=== PATIENT | female | born 1955 | race Caucasian/White ===

== ENCOUNTER → 2023-12-16 10:25 | Outpatient (CLI) | payer MEDICARE, SELFPAY ==
[2023-12-16 11:31] LABS: Hematocrit 42.9 % (36-46); Hemoglobin 14.6 g/dL (12.0-16.0); Mean Corpuscular HGB Conc 34.1 % (30-36); Mean Corpuscular Volume 96.8 fL (80-100); Platelet Count 178 X10^3/uL (150-400); Red Blood Cell Count 4.43 X10^6/uL (4.0-5.2); Red Cell Distribution Width 13.5 % (11.6-14.8); White Blood Cell Count 3.3 X10^3/uL (4.5-11.0)
[2023-12-16 11:55] LABS: Erythrocyte Sedimentation Rate 1 MM/HR (0-20)
[2023-12-16 11:58] LABS: Alanine Aminotransferase 18 IU/L (<35); Albumin 4.3 g/dL (3.5-5.0); Albumin Globulin Ratio 1.4 (1.0-2.8); Alkaline Phosphatase 83 U/L (38-126); Aspartate Aminotransferase 31 IU/L (14-36); BUN Creatinine Ratio 25.4 (6-22); Bilirubin Total 0.8 mg/dL (0.2-1.3); Blood Urea Nitrogen 16 mg/dL (7-17); C-Reactive Protein Quant < 0.5 mg/dL (<1.0); Calcium 9.3 mg/dL (8.4-10.2); Carbon Dioxide 31 mmol/L (22-32); Chloride 106 mmol/L (98-107); Cholesterol 228 mg/dL (140-199); Estimated Glomerular Filt Rate > 60 mL/min (>60); Glucose 83 mg/dL (80-110); HEMOLYSIS < 15 (0-50); Potassium 4.2 mmol/L (3.4-5.1); Sodium 140 mmol/L (137-145); Total Protein 7.3 g/dL (6.3-8.2); Triglycerides 58 mg/dL (35-150)
[2023-12-16 11:59] LABS: Rheumatoid Factor 9.5 IU/mL (<12.0)
[2023-12-16 12:05] LABS: HDL Cholesterol 124 mg/dL (40-60); LDL Cholesterol Calculated 92 mg/dL (<100)
[2023-12-22 14:09] LABS: CCP Antibodies IgG/IgA 4 units (0-19); Immunoglobulin A, Serum 155 mg/dL (87-352); Immunoglobulin G,Serum 539 mg/dL (586-1602); Immunoglobulin M, Serum 110 mg/dL (26-217)
[2023-12-22 17:49] LABS: Alpha-1-Globulin 0.2 g/dL (0.0-0.4); Alpha-2-Globulin 0.7 g/dL (0.4-1.0); Gamma Globulin 0.6 g/dL (0.4-1.8); Globulin Total 2.5 g/dL (2.2-3.9); Protein, Total 6.5 g/dL (6.0-8.5)
== END ==
LOC: LAB 10:29
PROVIDERS: Referring Provider Family Medicine; Visit Provider Family Medicine
DX: E78.5 Hyperlipidemia, unspecified (principal); M54.2 Cervicalgia; M79.641 Pain in right hand; M79.642 Pain in left hand
CPT/HCPCS: 36415; 80053; 80061; 82784; 84155; 84165; 85027; 85651; 86140; 86200; 86334; 86430